=== PATIENT | female | born 1970 | race Caucasian/White ===

== ENCOUNTER 2017-04-28 11:43 | Emergency (ER) | payer OTHER ==
[2017-04-28 11:56] VITALS: BP 130/79; PULSE 88; TEMP 98.3; BMI 39.7
--- NOTE | 2017-04-28 12:09 | PDOC ---
History of Present Illness - General Chief Complaint: Wound Stated Complaint: ABSCESS BOIL Time Seen by Provider: 04/28/17 12:03 History Source: Patient Exam Limitations: No Limitations - History of Present Illness Initial Comments: 04/28/17 12:07 46 yr female with history of DM presents with c/o boil to her upper back for months, started to get red 2 days ago. no drainage, no fever or chills. Past History - Past Medical History Allergies/Adverse Reactions: Allergies Allergy/AdvReac Type Severity Reaction Status Date / Time No Known Allergies Allergy Verified 04/28/17 11:51 Home Medications: Ambulatory Orders Metformin HCl [Glucophage] 500 mg PO DAILY 04/30/12 Cephalexin [Keflex] 500 mg PO BID #10 capsule 04/28/17 COPD: No Diabetes: Yes - Surgical History Cholecystectomy: Yes - Suicide/Smoking/Psychosocial Hx Smoking Status: Yes Smoking History: Current some day smoker Number of Cigarettes Smoked Daily: 2 Information on smoking cessation initiated: No Hx Alcohol Use: No Drug/Substance Use Hx: No *Physical Exam - Vital Signs Last Vital Signs Temp Pulse Resp BP Pulse Ox 98.3 F 88 20 130/79 98 04/28/17 11:52 04/28/17 11:52 04/28/17 11:52 04/28/17 11:52 04/28/17 11:52 - Physical Exam General Appearance: Yes: Nourished, Appropriately Dressed HEENT: positive: EOMI, [id number] Neck: negative: Tender Respiratory/Chest: positive: Lungs Clear, Normal Breath Sounds. negative: Chest Tender Cardiovascular: positive: Regular Rhythm, Regular Rate Musculoskeletal: positive: Normal Inspection Extremity: positive: Normal Capillary Refill, Normal Inspection, Normal Range of Motion Integumentary: positive: Normal Color, Dry, Warm, Other (upper back with 4cm indurated abscess with surrounding erythema no drainage no fluctuance ) Neurologic: positive: Normal Response, Motor Strength 5/5 Medical Decision Making - Medical Decision Making 04/28/17 12:10 cc: boil for many months to upper back red the past 2 days no fever or chills pt does NOT want it to be opened today, agree as the area is indurated no fluctuance pt should do frequent moist heat to the area and wash with antibacterial soap and water keflex for 5 days return to ER as needed also gave follow up with the surgeon or the junior web designer *DC/Admit/Observation/Transfer Diagnosis at time of Disposition: Boil - Discharge Dispostion Disposition: HOME Condition at time of disposition: Good - Prescriptions Prescriptions: Cephalexin [Keflex] 500 mg PO BID #10 capsule - Referrals Referrals: Lewis Travis MD [Staff Physician] - Cha Pruitt MD [Staff Physician] - - Patient Instructions Additional Instructions: frequent moist warm compresses every couple of hours for 15-20 minutes keep area clean and dry with soap and water take the antibitoic Kelfex for 5 days as directed follow up with either the surgeon or the junior web designer Return if any worsening symptoms - Post Discharge Activity
== END 2017-04-28 12:18 | disposition home or self-care (01) ==
LOC: JERFT 11:43
DX: L02.222 Furuncle of back [any part, except buttock and flank] (principal); E11.9 Type 2 diabetes mellitus without complications; Z79.84 Long term (current) use of oral hypoglycemic drugs
CPT/HCPCS: 99281-25

== ENCOUNTER 2017-10-25 04:58 | Day surgery (SDC) | payer OTHER ==
[2017-10-17 10:59] VITALS: BMI 39.2
[2017-10-25] MEDS ORDERED: MIDAZOLAM HCL 2 MG/2 ML SINGLE DOSE VIAL ONE (07:39)
[2017-10-25] MEDS ORDERED: PROPOFOL 20 ML ONE ×2 (07:39)
[2017-10-25] MEDS ORDERED: IBUPROFEN 400 MG TABLET (FP) PO PRN (07:52)
[2017-10-25] MEDS ORDERED: ACETAMINOPHEN 325 MG TABLET (FP) PO PRN (07:52)
--- NOTE | 2017-10-25 07:52 | HP ---
History & Physical Update - History History: No Change - Physical Physical: No Change - Assessment Assessment: No Change - Plan Plan: No Change (No change in HP)
[2017-10-25] MEDS ORDERED: LIDOCAINE HCL/PF 2% SDV 5ML VIAL ONE (08:08)
[2017-10-25] MEDS ORDERED: KETOROLAC TROMETHAMINE 30 MG/1 ML VIAL ONE (08:13)
[2017-10-25] MEDS ORDERED: ONDANSETRON 4 MG/2 ML VIAL IVPUSH PRN (08:33)
[2017-10-25] MEDS ORDERED: oxyCODONE HCL 5 MG TABLET PO PRN (08:33)
[2017-10-25] MEDS ORDERED: LACTATED RINGERS SOLUTION 1,000 ML IV SCH (08:45)
--- NOTE | 2017-10-25 10:17 | OP ---
Operative Note - Note: Operative Date: 10/25/17 Pre-Operative Diagnosis: HPV. Cervical Dysplasia Operation: LEEP cone Post-Operative Diagnosis: Same as Pre-op Surgeon: Nicci Moreno Anesthesia: General Estimated Blood Loss (mls): 30 Operative Report Dictated: Yes
[2017-10-25 11:53] VITALS: PULSE 56
[2017-10-25 12:03] VITALS: BP 116/63; TEMP 98
--- NOTE | 2017-10-29 16:19 | PATH ---
Surgical Pathology Report Patient Name: KATLYN GALVAN [facility]. Rec. #: [id number] /Age/Gender: 1970 (Age: 47) / F Account: [id number] Location: [facility] Taken: 10/25/2017 Received: 10/25/2017 Reported: 11/06/2017 Physicians: Nicci Moreno M.D. Specimen(s) Received A: LEEP BX OF OF CERVIX FIGUEROA 12 OCLOCK B: ENDOCERVICAL CURETTINGS Clinical History Low grade squamous intraepithelial lesion Final Diagnosis A. 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 MARGINS ARE NEGATIVE FOR HIGH GRADE DYSPLASIA. COMMENT: CELSO 2 PRESENT AT 12-3:00 AND 9 -12:00 QUADRANTS. IMMUNOHISTOCHEMICAL STAINS DONE ON BLOCK A1 AND A4 PERFORMED AT [facility] ([phone] [id number]) SHOWED THE STAINING PATTERNS ARE CONSISTENT WITH HIGH GRADE DYSPLASIA. POSITIVE AND NEGATIVE CONTROLS (INTERNAL IF APPLICABLE) SHOW APPROPRIATE RESULTS. B. ENDOCERVICAL CURETTINGS: ENDOCERVICAL TISSUE WITH CHRONIC INFLAMMATION AND FOCAL SQUAMOUS METAPLASIA. Comment: Interdepartmental case review with consensus on diagnosis. This case was discussed with Dr. Moreno on October 29, 2017. Electronically Signed Pita Mcgrath M.D. Gross Description A. Received in formalin labeled "LEEP biopsy of cervix," is a 2 cm in diameter cervical LEEP cone biopsy with a suture marking the 12:00 aspect of the specimen, per the surgeon. The specimen is partially surfaced by a travis-pink mucosa. The base is inked blue and the specimen is serially sectioned. The specimen is entirely submitted in 4 cassettes as follows: 1-12:00 to 3:00; 2-3:00 to 6:00; 3-6:00 to 9:00; 4-9:00 to 12:00. B. Received in formalin labeled "endocervix," is a 2.1 x 1.5 x 0.2 cm unoriented portion of soft tissue. The specimen is inked blue, serially sectioned and entirely submitted in 2 cassettes. DL/10/25/2017 saudi/10/25/2017
--- NOTE | 2017-11-19 12:02 | OP ---
DATE OF OPERATION: 10/25/2017 PREOPERATIVE DIAGNOSIS: Cervical dysplasia and Human papillomavirus and low-grade cervical epithelial lesion. OPERATION: Loop electrocautery excision procedure cone. POSTOPERATIVE DIAGNOSIS: Cervical dysplasia and Human papillomavirus and low-grade cervical epithelial lesion. SURGEON: Nicci Patton MD ANESTHESIA: General. DESCRIPTION OF PROCEDURE: The patient was taken to the operating room and placed in dorsal lithotomy position, prepped and draped in the usual sterile fashion. A time-out was performed in accordance with hospital regulation. Lugol was then placed on the cervix. A large LEEP cone was then done. Ectocervix was removed and then endocervix was removed. Specimen was submitted to Pathology. Bovie was then used to maintain hemostasis. Cauterization of the cervix was then done for hemostasis. Hemostasis was achieved. Monsel was then placed on the cervix. Speculum was then removed. All instruments were then removed. The patient had tolerated the procedure well and was taken to the recovery room in stable condition. Estimated blood loss 20 mL. Joshua DEGROOT/[id number]
== END 2017-10-25 12:04 | disposition home or self-care (01) ==
LOC: JASU-SURG 04:58
PROVIDERS: ATTEND Obstetrics & Gynecology
PROC: 0UBC7ZX Excision of Cervix, Via Natural or Artificial Opening, Diagnostic (ICD-10-PCS; principal; 2017-10-25 07:30)
DX: N87.1 Moderate cervical dysplasia (principal); R87.810 Cervical high risk human papillomavirus (HPV) DNA test positive; E11.9 Type 2 diabetes mellitus without complications; Z79.84 Long term (current) use of oral hypoglycemic drugs; E66.01 Morbid (severe) obesity due to excess calories
CPT/HCPCS: 36415; 82962; 84703; 86850; 86900; 86901; 88305-TC; 94760

== ENCOUNTER 2019-03-02 20:21 | Emergency (ER) | payer OTHER | END 2019-03-02 21:51 | disposition home or self-care (01) | LOC: JERFT 20:21 ==